=== PATIENT | female | born 2000 | race Caucasian/White ===

== ENCOUNTER 2022-10-16 11:56 | Day surgery (SDC) | payer OTHER ==
[2022-10-16] MEDS ORDERED: hydrALAZINE 20 MG/ML VIAL SLOW IVP PRN (12:02)
[2022-10-16 13:00] VITALS: BMI 32.0
[2022-10-16 13:16] LABS: Fetal Membranes Rupture No Membranes Rupture (No Rupture)
[2022-10-16 22:58] LABS: Chlamydia by PCR Not Detected (NotDetected); GC by PCR Not Detected (NotDetected)
== END 2022-10-16 13:11 | disposition home or self-care (01) ==
LOC: CSHLD/OP 11:56
PROVIDERS: ATTEND Obstetrics & Gynecology
DX: O47.1 False labor at or after 37 completed weeks of gestation (principal); Z3A.39 39 weeks gestation of pregnancy
CPT/HCPCS: 84112; 86762; 87480; 87491; 87510; 87591; 87660; 87661; 99284

== ENCOUNTER 2022-10-17 22:42 | Inpatient (IN) | payer OTHER ==
[2022-10-17 23:14] VITALS: BMI 32.9
[2022-10-18] MEDS ORDERED: hydrALAZINE 20 MG/ML VIAL SLOW IVP PRN ×2 (01:29→08:51)
[2022-10-18] MEDS ORDERED: Diphenoxylate HCl/Atropine Tablet PO PRN (01:39)
[2022-10-18] MEDS ORDERED: Ondansetron PF 4 MG/2 ML Vial IVP PRN (01:39)
[2022-10-18] MEDS ORDERED: Ibuprofen 800 MG TAB PO PRN (01:39)
[2022-10-18] MEDS ORDERED: Methylergonovine 0.2 MG/ML VIAL IM PRN (01:39)
[2022-10-18] MEDS ORDERED: Misoprostol 200 MCG TAB PR PRN (01:39)
[2022-10-18] MEDS ORDERED: Carboprost 250 MCG/ML AMP IM PRN (01:39)
[2022-10-18] MEDS ORDERED: Acetaminophen 500 MG TAB PO PRN (01:39)
[2022-10-18] MEDS ORDERED: Lidocaine 1% (PF) 30 ML VIAL SC PRN (01:39)
[2022-10-18] MEDS ORDERED: NS w/ Oxytocin 30 units 500 ML IV SCH (01:45)
[2022-10-18] MEDS ORDERED: Lactated Ringer's 1,000 ML IV SCH (01:45)
[2022-10-18 04:19] LABS: Mean Corpuscular HGB CONC 34.4 g/dL (32.0-36.0); Mean Corpuscular Hemoglobin 28.6 pg (27.0-33.0); Mean Corpuscular Volume 83.1 fl (81.6-98.3); Platelet Count 251 10x3/uL (150-450); RBC Distribution Width 14.2 % (11.5-14.5)
[2022-10-18 04:51] LABS: HBSAg Index 0.46 S/CO (0-0.99); Hep B Surf Ag Non-Reactive S/CO (NonReactive)
[2022-10-18 04:53] LABS: Syphilis Antibody Nonreactive (Nonreactive); Syphilis Antibody Index 0.11 S/CO (<1.00 Non-Reactive)
[2022-10-18] MEDS ORDERED: Boostrix 0.5 ML (Tdap) VIAL (>/=7 yrs of age) IM ONE (08:51)
[2022-10-18] MEDS ORDERED: Preparation H Ointment 28 GM TUBE PR PRN (08:51)
[2022-10-18] MEDS ORDERED: Bisacodyl 10 MG SUPP PR PRN (08:51)
[2022-10-18] MEDS ORDERED: Promethazine HCl 25 MG/ML VIAL IM PRN (08:51)
[2022-10-18] MEDS ORDERED: Milk Of Magnesia 30 ML UDCUP PO PRN (08:51)
[2022-10-18] MEDS ORDERED: Ferrous Sulfate 325 MG TAB PO SCH (09:00)
[2022-10-18] MEDS: Docusate 100 MG CAP PO SCH ×2 (10:32→21:14)
[2022-10-18] MEDS: Prenatal Vitamin 1 TAB PO SCH (10:33)
[2022-10-18] MEDS: Ibuprofen 800 MG TAB PO SCH ×2 (12:49→21:13)
[2022-10-18] MEDS: Ferrous Sulfate 325 MG TAB PO SCH (14:01)
[2022-10-19] MEDS: Ibuprofen 800 MG TAB PO SCH ×3 (04:40→21:15)
[2022-10-19] MEDS: Docusate 100 MG CAP PO SCH ×2 (07:54→21:17)
[2022-10-19] MEDS: Ferrous Sulfate 325 MG TAB PO SCH ×2 (07:54→17:48)
[2022-10-19] MEDS: Prenatal Vitamin 1 TAB PO SCH (07:54)
[2022-10-20] MEDS: Ibuprofen 800 MG TAB PO SCH (05:14)
[2022-10-20 07:53] VITALS: BP 99/50; TEMP 98.2
[2022-10-20] MEDS: Prenatal Vitamin 1 TAB PO SCH (08:22)
[2022-10-20] MEDS: Docusate 100 MG CAP PO SCH (08:22)
[2022-10-20] MEDS: Ferrous Sulfate 325 MG TAB PO SCH (08:22)
== END 2022-10-20 11:50 | disposition home or self-care (01) | DRG 807 ==
LOC: CSHLD/OP 22:42 → CSHLD 10-18 01:20 → CSHPP 10-18 09:25
PROVIDERS: ADMIT Obstetrics & Gynecology; ATTEND Obstetrics & Gynecology
PROC: 10E0XZZ Delivery of Products of Conception, External Approach (ICD-10-PCS; principal; 2022-10-18)
DX: O80 Encounter for full-term uncomplicated delivery (principal); Z37.0 Single live birth; Z3A.39 39 weeks gestation of pregnancy
CPT/HCPCS: 85027; 86762; 86780; 86850; 86900; 86901; 87340; 99285